=== PATIENT | female | born 1945 | race Hispanic/Latino ===

== ENCOUNTER 2018-09-16 22:27 | Emergency (ER) | payer SELFPAY ==
[2018-09-16 23:49] LABS: Absolute Lymphocytes (CBC) 1.3 K/uL (0.7-4.9); Absolute Monocytes 0.7 K/uL (0.1-1.3); Basophils % 0.4 % (0-1.3); Eosinophils % 5.9 % (0-4.4); Hematocrit 45.6 % (36.0-45.0); Lymphocytes % 17.5 % (15.3-44.8); MPV 8.1 fL (7.6-11.3); Monocytes % 9.5 % (3.3-12.3); RBC Red Blood Cell Count 5.05 M/uL (3.86-4.86)
[2018-09-16 23:57] LABS: ALT/SGPT 30 U/L (12-78); AST/SGOT 17 U/L (15-37); Albumin 3.9 g/dL (3.4-5.0); Alkaline Phosphatase 126 U/L (45-117); BUN Blood Urea Nitrogen 14 mg/dL (7-18); Bicarbonate 26 mmol/L (21-32); Bilirubin Direct < 0.1 mg/dL (0-0.2); Bilirubin Total 0.2 mg/dL (0.2-1.0); Glucose Level 144 mg/dL (74-106); Lipase 144 U/L (73-393); Potassium 3.9 mmol/L (3.5-5.1); Sodium Level 140 mmol/L (136-145)
[2018-09-17] MEDS ORDERED: ONDANSETRON 4 MG/2 ML VIAL ONE (00:38)
[2018-09-17] MEDS ORDERED: MORPHINE 4 MG/ML SYR ONE (00:38)
[2018-09-17] MEDS ORDERED: MORPHINE 2 MG/ML SYR ONE (01:40)
--- NOTE | 2018-09-17 02:20 | ER ---
Nurse's Notes [facility] Name: Lisa Horton Age: 72 yrs Sex: Female : 1945 Arrival Date: 09/16/2018 Time: 22:29 Bed 6 Private MD: Diagnosis: Unspecified abdominal pain;Cholelithiasis;Constipation Presentation: 09/16 23:07 Presenting complaint: Patient states: Pt reports pain to left upper quadrant abdominal ea pain. Pt reports she has chronic constipation and felt nausea yesterday. Denies vomiting and Diarrhea. Transition of care: patient was not received from another setting of care. Onset of symptoms was September 16, 2018. Risk Assessment: Do you want to hurt yourself or someone else? Patient reports no desire to harm self or others. Initial Sepsis Screen: Does the patient meet any 2 criteria? No. Patient's initial sepsis screen is negative. Does the patient have a suspected source of infection? No. Patient's initial sepsis screen is negative. Care prior to arrival: None. 23:07 Method Of Arrival: Ambulatory ea 23:07 Acuity: ORM 3 ea Historical: - Allergies: 23:16 No Known Allergies; ea - Home Meds: 23:16 amlodipine oral [Active]; Metoprolol Tartrate Oral [Active]; Folic Acid Oral [Active]; ea - PMHx: 23:16 Hypertension; ea - PSHx: 23:16 None; ea - Immunization history:: Adult Immunizations up to date. - Social history:: Smoking status: Patient/guardian denies using tobacco. - Ebola Screening: : No symptoms or risks identified at this time. Screenin:10 Abuse screen: Denies threats or abuse. Nutritional screening: No deficits noted. ea Tuberculosis screening: No symptoms or risk factors identified. Fall Risk None identified. Assessment: 23:17 General: Appears in no apparent distress. Behavior is calm, cooperative, appropriate ea for age. Pain: Complains of pain in left upper quadrant Pain radiates to left mid back. Neuro: Level of Consciousness is awake, alert, obeys commands, Oriented to person, place, time. Cardiovascular: Patient's skin is warm and dry. Respiratory: Airway is patent Respiratory effort is even, unlabored, Respiratory pattern is regular, symmetrical. GI: Bowel sounds present X 4 quads. Abd is soft and non tender X 4 quads. Derm: Skin is pink, warm \T\ dry. 09/17 01:00 Reassessment: Patient and/or family updated on plan of care and expected duration. Pain ea level reassessed. Patient is alert, oriented x 3, equal unlabored respirations, skin warm/dry/pink. 02:15 Reassessment: Patient and/or family updated on plan of care and expected duration. Pain ea level reassessed. Patient is alert, oriented x 3, equal unlabored respirations, skin warm/dry/pink. 02:33 Reassessment: Patient and/or family updated on plan of care and expected duration. Pain ea level reassessed. Patient is alert, oriented x 3, equal unlabored respirations, skin warm/dry/pink. Discharge instruction given to patient, verbalized the understanding of instruction. Pt left ED ambulatory accompanied by family, tolerated well. Vital Signs: 09/16 23:09 BP 200 / 102; Pulse 95; Resp 18; Temp 97.4; Pulse Ox 97% on R/A; Weight 39.01 kg; ea Height 5 ft. 1 in. (156 cm); 09/17 00:25 BP 138 / 83; Pulse 61; Resp 18; Pulse Ox 96% on R/A; tl2 01:55 BP 163 / 85; Pulse 70; Resp 18; Pulse Ox 96% on R/A; tl2 02:16 BP 133 / 83; Pulse 65; Resp 18; Temp 97.8; Pulse Ox 97% ; ea 09/16 23:09 Body Mass Index 16.03 (39.01 kg, 156 cm) ea ED Course: 09/16 22:29 Patient arrived in ED. am2 23:07 Arminda Carreno, SHAWN is Primary Nurse. ea 23:09 Matt David NP is PHCP. pm1 23:09 Huy Salazar MD is Attending Physician. pm1 23:09 Triage completed. ea 23:10 Patient has correct armband on for positive identification. Bed in low position. Call ea light in reach. Side rails up X2. 23:13 Patient placed in an exam room, on a stretcher, on pulse oximetry. ea 23:24 Inserted saline lock: 24 gauge in right antecubital area, using aseptic technique. ea Blood collected. By Lorena chief technologist. 05/16 00:45 CT completed. Patient tolerated procedure well. Patient moved to CT via stretcher. Patient moved back from CT. 00:54 CT Abd/Pelvis - W/Contrast: IV contrast only In Process Unspecified. EDMS 02:32 No provider procedures requiring assistance completed. IV discontinued, intact, ea bleeding controlled, No redness/swelling at site. Pressure dressing applied. Administered Medications: 00:24 Drug: Zofran 4 mg Route: IVP; Site: right antecubital; ea 02:15 Follow up: Response: No adverse reaction; Marked relief of symptoms ea 01:09 Not Given (Patient Refused): morphine 4 mg IVP once ea 01:31 Drug: morphine 2 mg Route: IVP; Site: right antecubital; ea 02:00 Follow up: Response: No adverse reaction; Marked relief of symptoms; Pain is decreased ea Outcome: 02:20 Discharge ordered by MD. pm1 02:32 Discharged to home ambulatory, with family. ea 02:32 Condition: improved 02:32 Discharge instructions given to patient, Instructed on discharge instructions, follow up and referral plans. medication usage, Demonstrated understanding of instructions, follow-up care, medications, Prescriptions given X 1. 02:34 Patient left the ED. ea Signatures: Dispatcher [employer] EDMS Polo Mcgee Matt David, DREA VENDER pm1 Sofia Walker, RN RN tl2 Donna Willis 2 Arminda Carreno RN RN clau Corrections: (The following items were deleted from the chart) 02:17 02:16 BP 133 / 83; Pulse 65bpm; Resp 18bpm; Pulse Ox 97%; ea ea
--- NOTE | 2018-09-17 02:21 | EDPHYS ---
Physician Documentation [facility] Name: Lisa Horton Age: 72 yrs Sex: Female : 1945 Arrival Date: 09/16/2018 Time: 22:29 Bed 6 Private MD: ED Physician Huy Salazar HPI: 09/17 00:00 This 72 yrs old Female presents to ER via Ambulatory with complaints of Left pm1 Flank Pain, Constipation. 00:00 The patient complains of pain in the left upper quadrant and left flank. The pain does pm1 not radiate. Onset: The symptoms/episode began/occurred 3 day(s) ago. Modifying factors: The symptoms are alleviated by nothing. the symptoms are aggravated by nothing. Associated signs and symptoms: Pertinent positives: constipation, Pertinent negatives: diarrhea, dizziness, dysuria, fever, urinary frequency, nausea, vomiting. Severity of pain: in the emergency department the pain is unchanged. The patient has not experienced similar symptoms in the past. The patient has not recently seen a physician. Historical: - Allergies: 09/16 23:16 No Known Allergies; ea - Home Meds: 23:16 amlodipine oral [Active]; Metoprolol Tartrate Oral [Active]; Folic Acid Oral [Active]; ea - PMHx: 23:16 Hypertension; ea - PSHx: 23:16 None; ea - Immunization history:: Adult Immunizations up to date. - Social history:: Smoking status: Patient/guardian denies using tobacco. - Ebola Screening: : No symptoms or risks identified at this time. ROS: 09/17 00:00 Constitutional: Negative for fever, chills, and weight loss, Eyes: Negative for injury, pm1 pain, redness, and discharge, ENT: Negative for injury, pain, and discharge, Neck: Negative for injury, pain, and swelling, Cardiovascular: Negative for chest pain, palpitations, and edema, Respiratory: Negative for shortness of breath, cough, wheezing, and pleuritic chest pain, Back: Negative for injury and pain. : Negative for injury, bleeding, discharge, and swelling, MS/Extremity: Negative for injury and deformity, Skin: Negative for injury, rash, and discoloration, Neuro: Negative for headache, weakness, numbness, tingling, and seizure. Abdomen/GI: Positive for abdominal pain, constipation, of the left upper quadrant, Negative for nausea, vomiting, and diarrhea. Exam: 00:00 Constitutional: This is a well developed, well nourished patient who is awake, alert, pm1 and in no acute distress. Head/Face: Normocephalic, atraumatic. Eyes: Pupils equal round and reactive to light, extra-ocular motions intact. Lids and lashes normal. Conjunctiva and sclera are non-icteric and not injected. Cornea within normal limits. Periorbital areas with no swelling, redness, or edema. ENT: Nares patent. No nasal discharge, no septal abnormalities noted. Tympanic membranes are normal and external auditory canals are clear. Oropharynx with no redness, swelling, or masses, exudates, or evidence of obstruction, uvula midline. Mucous membranes moist. Neck: Trachea midline, no thyromegaly or masses palpated, and no cervical lymphadenopathy. Supple, full range of motion without nuchal rigidity, or vertebral point tenderness. No Meningismus. Chest/axilla: Normal chest wall appearance and motion. Nontender with no deformity. No lesions are appreciated. Cardiovascular: Regular rate and rhythm with a normal S1 and S2. No gallops, murmurs, or rubs. Normal PMI, no JVD. No pulse deficits. Respiratory: Lungs have equal breath sounds bilaterally, clear to auscultation and percussion. No rales, rhonchi or wheezes noted. No increased work of breathing, no retractions or nasal flaring. 00:00 Back: No spinal tenderness. No costovertebral tenderness. Full range of motion. Skin: Warm, dry with normal turgor. Normal color with no rashes, no lesions, and no evidence of cellulitis. MS/ Extremity: Pulses equal, no cyanosis. Neurovascular intact. Full, normal range of motion. 00:00 Abdomen/GI: Inspection: obese Bowel sounds: normal, Palpation: soft, in all quadrants, mild abdominal tenderness, in the left upper quadrant, mass, is not appreciated, rebound tenderness, is not appreciated. 00:00 Neuro: Orientation: is normal, Motor: is normal, moves all fours. Vital Signs: 09/16 23:09 BP 200 / 102; Pulse 95; Resp 18; Temp 97.4; Pulse Ox 97% on R/A; Weight 39.01 kg; ea Height 5 ft. 1 in. (156 cm); 09/17 00:25 BP 138 / 83; Pulse 61; Resp 18; Pulse Ox 96% on R/A; tl2 01:55 BP 163 / 85; Pulse 70; Resp 18; Pulse Ox 96% on R/A; tl2 02:16 BP 133 / 83; Pulse 65; Resp 18; Temp 97.8; Pulse Ox 97% ; ea 09/16 23:09 Body Mass Index 16.03 (39.01 kg, 156 cm) ea MDM: 09/16 23:14 Patient medically screened. pm1 09/17 02:19 Data reviewed: vital signs. Data interpreted: Pulse oximetry: on room air is 97 %. pm1 Interpretation: normal. Counseling: I had a detailed discussion with the patient and/or guardian regarding: the historical points, exam findings, and any diagnostic results supporting the discharge/admit diagnosis, lab results, radiology results, the need for outpatient follow up, to return to the emergency department if symptoms worsen or persist or if there are any questions or concerns that arise at home. 09/16 23:14 Order name: Basic Metabolic Panel; Complete Time: 00:17 ea 09/16 23:14 Order name: CBC with Diff; Complete Time: 00:17 09/16 23:14 Order name: Creatinine for Radiology; Complete Time: 00:17 09/16 23:14 Order name: Hepatic Function; Complete Time: 00:17 ea 09/16 23:14 Order name: Lipase; Complete Time: 00:17 09/16 23:15 Order name: CT Abd/Pelvis - W/Contrast: IV contrast only pm1 09/16 23:14 Order name: IV Saline Lock; Complete Time: 23:25 ea 09/16 23:14 Order name: Labs collected and sent; Complete Time: 23:28 ea Administered Medications: 00:24 Drug: Zofran 4 mg Route: IVP; Site: right antecubital; ea 02:15 Follow up: Response: No adverse reaction; Marked relief of symptoms ea 01:09 Not Given (Patient Refused): morphine 4 mg IVP once ea 01:31 Drug: morphine 2 mg Route: IVP; Site: right antecubital; ea 02:00 Follow up: Response: No adverse reaction; Marked relief of symptoms; Pain is decreased ea Disposition: 07:55 Co-signature as Attending Physician, Huy Salazar MD I agree with the assessment and wa plan of care. Disposition: 09/17/18 02:20 Discharged to Home. Impression: Unspecified abdominal pain, Cholelithiasis, Constipation. - Condition is Stable. - Discharge Instructions: Abdominal Pain, Adult, Constipation, Adult, Cholelithiasis. - Prescriptions for Miralax 17 gram/dose Oral - take 1 packet by ORAL route once daily As needed dilute powder in 8 ounces of water or juice; 7 packet. - Medication Reconciliation Form, Thank You Letter, Antibiotic Education, Prescription Opioid Use form. - Follow up: Emergency Department; When: As needed; Reason: Worsening of condition. Follow up: Private Physician; When: 2 - 3 days; Reason: Recheck today's complaints, Continuance of care, Re-evaluation by your physician. - Problem is new. - Symptoms have improved. Signatures: Dispatcher [employer] EDMS Matt David, [employer] pm1 Arminda Carreno RN RN ea Appiah, William, MD MD wa Corrections: (The following items were deleted from the chart) 02:34 02:20 09/17/2018 02:20 Discharged to Home. Impression: Unspecified abdominal pain; ea Cholelithiasis; Constipation. Condition is Stable. Forms are Medication Reconciliation Form, Thank You Letter, Antibiotic Education, Prescription Opioid Use. Follow up: Emergency Department; When: As needed; Reason: Worsening of condition. Follow up: Private Physician; When: 2 - 3 days; Reason: Recheck today's complaints, Continuance of care, Re-evaluation by your physician. Problem is new. Symptoms have improved. pm1
--- NOTE | 2018-09-21 15:42 | RAD REPORT ---
EXAM DESCRIPTION: CT - Abdomen Pelvis W Contrast - 09/17/2018 6:42 am CLINICAL HISTORY: LUQ pain COMPARISON: None Available. TECHNIQUE: CT of the abdomen and pelvis performed following IV administration of iodinated contrast. DLP: 2031 mGycm FINDINGS: Lung Bases: The visualized lung bases are clear. Bones: Degenerative change of the spine, hips, and sacroiliac joints. Abdomen: Liver: The liver has normal size and density. No intrahepatic mass or biliary dilatation. Gallbladder: Calcified gallstones without pericholecystic inflammatory change identified. Spleen, Pancreas, and Adrenal Glands: The spleen, pancreas, and adrenal glands are unremarkable. Kidneys: The kidneys have normal size and contour without evidence of solid mass or hydronephrosis. Vasculature: Aortoiliac atherosclerosis. IVC is unremarkable. The portal vein is patent. The proxim al visceral and renal arteries are patent. Stomach: The stomach and duodenum have normal course. Other: No free intraperitoneal air. No free fluid or lymphadenopathy. Pelvis: Bladder: Urinary bladder is unremarkable. Bowel: No dilated loops of large or small bowel. Scattered diverticula colon without colonic inflam matory change. Appendix: Normal appendix. Pelvis: Uterus is not enlarged. IMPRESSION: 1. No acute inflammatory or obstructive process identified. 2. Cholelithiasis without CT evidence of acute cholecystitis. 3. Diverticulosis without evidence of acute diverticulitis. This exam was performed according to our departmental dose-optimization program, which includes autom ated exposure control, adjustment of the mA and/or kV according to patient size and/or use of iterati ve reconstruction technique. Electronically signed by: Jordan Chester 09/17/2018 1:12 AM CDT Due to temporary technical issues with the PACS/Fluency reporting system, reports are being signed by the in house radiologist as a courtesy to ensure prompt reporting. The interpreting radiologist is f ully responsible for the content of the report.
== END 2018-09-17 02:34 | disposition home or self-care (01) ==
LOC: ER 22:27
DX: K80.20 Calculus of gallbladder without cholecystitis without obstruction (principal); K59.00 Constipation, unspecified; I10 Essential (primary) hypertension
CPT/HCPCS: 36415; 74177; 80048; 80076; 83690; 85025; 96374; 96375; 99284; J2270; J2405; Q9967